=== PATIENT | female | born 1970 | race Caucasian/White ===

== ENCOUNTER 2017-12-28 08:22 | Emergency (ER) | payer MEDICAID ==
[2017-12-28 08:35] VITALS: RESP 20
[2017-12-28 10:28] VITALS: O2SAT 96
--- NOTE | 2017-12-28 11:30 | C.PDOC ---
History Of Present Illness 47 year old female presents to the ED for evaluation of lower back pain which began two weeks ago, and worsened yesterday. Patient states she underwent "spinal surgery" in June 2016. She does not know the type of surgery or the name of her surgeon. Patient typically ambulates with walker. She states her pain has started radiating to her bilateral upper legs. She denies recent falls/injuries, fever, chills, urinary retention, urinary/bowel incontinence, rash or sensory changes. Time Seen by Provider: 12/28/17 09:02 Chief Complaint (Nursing): Back Pain History Per: Patient History/Exam Limitations: no limitations Onset/Duration Of Symptoms: Days (2 weeks ) Current Symptoms Are (Timing): Worse Quality Of Discomfort: "Pain" Previous Symptoms: Back Pain (lower) Associated Symptoms: denies: Incontinence, New Weakness, New Numbness Additional History Per: Patient Past Medical History Reviewed: Historical Data, Nursing Documentation, Vital Signs Vital Signs: Last Vital Signs Temp 97.9 F 12/28/17 10:27 Pulse 91 H 12/28/17 10:27 Resp 20 12/28/17 10:27 BP 98/62 L 12/28/17 10:27 Pulse Ox 96 12/28/17 10:27 - Medical History PMH: Anxiety, Hypothyroidism Surgical History: Cholecystectomy Family History: States: Unknown Family Hx - Social History Hx Tobacco Use: Yes Hx Alcohol Use: No Hx Substance Use: No (former heroin abuser, on methadone daily) - Immunization History Hx Tetanus Toxoid Vaccination: No Hx Influenza Vaccination: No Hx Pneumococcal Vaccination: No Review Of Systems Constitutional: Negative for: Fever, Chills Genitourinary: Negative for: Incontinence Musculoskeletal: Positive for: Back Pain (lower), Leg Pain (bilateral, upper ) Neurological: Negative for: Weakness, Numbness Physical Exam - Physical Exam Appears: Non-toxic, Other (in moderate pain ) Skin: Normal Color, Warm, Dry, No Rash Head: Atraumatic, Normacephalic Eye(s): bilateral: Normal Inspection Oral Mucosa: Moist Neck: Supple Chest: Symmetrical, No Deformity, No Tenderness Cardiovascular: Rhythm Regular, No Murmur Respiratory: Normal Breath Sounds, No Rales, No Rhonchi, No Wheezing Gastrointestinal/Abdominal: Soft, No Tenderness, No Guarding, No Rebound Back: Other (diffuse lumbar tenderness. midline surgical scar noted to L3-L5 area. no erythema, rash or swelling ) Extremity: Normal ROM, No Tenderness, Capillary Refill, No Deformity, No Swelling Neurological/Psych: Oriented x3, Normal Speech, Normal Cognition, Normal Sensation Gait: With Assistance (walker) ED Course And Treatment O2 Sat by Pulse Oximetry: 96 (on RA) Pulse Ox Interpretation: Normal Progress Note: Toradol IM, Valium PO, and Prednisone PO given. On reassessment, patient is resting comfortably, showing no signs of distress and reports an improvement in her symptoms. Patient is ambulatory in the ED with walker and is stable for discharge. Patient will be discharged with Rx for Lidoderm patch and Naproxen for pain and Valium for muscle spasm. Patient is advised to follow up with her PMD within 1-2 days for further evaluation. Disposition Counseled Patient/Family Regarding: Studies Performed, Diagnosis, Need For Followup, Rx Given - Disposition Referrals: Manpreet Medina MD [Medical Doctor] - Disposition: HOME/ ROUTINE Disposition Time: 11:30 Condition: STABLE Additional Instructions: FOLLOW UP WITH YOUR DOCTOR IN 1-2 DAYS USE MEDICATIONS NEEDED RETURN TO ER IF SYMPTOMS WORSEN Prescriptions: Diazepam [Valium] 2 mg PO BID PRN #14 tablet PRN Reason: musle spasm Lidocaine 5% [Lidoderm] 1 patch TOP DAILY PRN #10 patch PRN Reason: pain Naproxen [Naprosyn] 1 tab PO BID PRN #25 tab PRN Reason: Pain Instructions: Low Back Pain (DC) Forms: [facility] (Vietnamese) Print Language: SERBIAN - POA Present On Arrival: None - Clinical Impression Clinical Impression: Low back pain - Scribe Statement The provider has reviewed the documentation as recorded by the Scribe (Khushboo Llamas) Provider Attestation: All medical record entries made by the Scribe were at my direction and personally dictated by me. I have reviewed the chart and agree that the record accurately reflects my personal performance of the history, physical exam, medical decision making, and the department course for this patient. I have also personally directed, reviewed, and agree with the discharge instructions and disposition.
[2017-12-28 11:32] VITALS: BP 132/83; PULSE 71; TEMP 98.1
== END 2017-12-28 16:06 | disposition home or self-care (01) ==
LOC: C.ER 08:22
DX: M54.5 Low back pain (principal)
CPT/HCPCS: 96372; 99284; J1885

== ENCOUNTER 2018-01-17 16:32 | Emergency (ER) | payer MEDICAID ==
[2018-01-17 16:45] VITALS: BMI 24.7
[2018-01-17 16:58] VITALS: RESP 20
[2018-01-17] MEDS ORDERED: DiphenhydrAMINE 50 mg/ml Inj IVP STA (17:13)
[2018-01-17] MEDS ORDERED: Sodium Chloride 0.9% 1,000 ML IV ONE (17:13)
[2018-01-17] MEDS ORDERED: DiphenhydrAMINE 50 mg/ml Inj ONE (17:44)
--- NOTE | 2018-01-17 17:56 | C.PDOC ---
History Of Present Illness 47 year old female with a history of chronic back pain presents to the ED for evaluation of worsening abdominal pain associated with nonbilious/nonbloody vomiting, intermittent fever diarrhea, chills, and exacerbated chronic back pain for 2 days. The [facility] In the ED she requests medications. Denies sick contact, recent travel, and any other associated symptoms. Time Seen by Provider: 01/17/18 16:53 Chief Complaint (Nursing): Abdominal Pain History Per: Patient History/Exam Limitations: no limitations Onset/Duration Of Symptoms: Days Current Symptoms Are (Timing): Still Present Recent travel outside of the [place]: No Past Medical History Reviewed: Historical Data, Nursing Documentation, Vital Signs Vital Signs: Last Vital Signs Temp 99.3 F 01/17/18 16:56 Pulse 84 01/17/18 16:56 Resp 20 01/17/18 16:56 BP 175/110 H 01/17/18 16:56 Pulse Ox 98 01/17/18 16:56 - Medical History PMH: Anxiety, Hypothyroidism Surgical History: Cholecystectomy Family History: States: Unknown Family Hx - Social History Hx Tobacco Use: Yes Hx Alcohol Use: No Hx Substance Use: No (former heroin abuser, on methadone daily) - Immunization History Hx Tetanus Toxoid Vaccination: No Hx Influenza Vaccination: No Hx Pneumococcal Vaccination: No Review Of Systems Except As Marked, All Systems Reviewed And Found Negative. (as per HPI.) Constitutional: Positive for: Fever (subjective. ), Chills. Negative for: Other (sick contact. ) Gastrointestinal: Positive for: Nausea, Vomiting, Diarrhea Physical Exam - Physical Exam Appears: Other (mild distress. lethargic. ) Skin: Warm, Dry Head: Normacephalic, Tenderness Eye(s): bilateral: PERRL, EOMI Oral Mucosa: Other (tacky mucus membranes) Teeth: Other (poor dentition) Neck: Normal ROM, Trachea Midline Cardiovascular: Rhythm Regular, No Murmur Respiratory: Normal Breath Sounds, No Accessory Muscle Use Gastrointestinal/Abdominal: Soft, Tenderness (diffuse, distractible, unlocalizable.), No Mass, No Distention, No Guarding, No Rebound Back: Decreased ROM, Paraspinal Tenderness Extremity: No Deformity Neurological/Psych: Oriented x3, Dysarthria, Other (slurred speech. at times appears to be falling asleep during discussion.) ED Course And Treatment - Laboratory Results Result Diagrams: 01/17/18 18:02 01/17/18 18:02 O2 Sat by Pulse Oximetry: 98 (RA) Pulse Ox Interpretation: Normal - CT Scan/US CT ABD/Pelvis Other Rad Studies (CT/US): Read By Radiologist CT/US Interpretation: FINDINGS: LUNG BASES: The lung bases appear clear. No pleural effusions are seen. LIVER: Unremarkable. GALLBLADDER AND BILE DUCTS: S/p cholecystectomy. Surgical clips are noted in the gallbladder fossa. PANCREAS: Unremarkable. SPLEEN: Unremarkable. ADRENAL GLANDS: Unremarkable. KIDNEYS, URETERS, AND BLADDER: The kidneys appear within normal limits. There is no hydronephrosis or hydroureter. No urinary calculi are seen. STOMACH AND BOWEL: Thick walled fluid filled duodenum and loops of jejunum as well as ileum compatible with enteritis. Thick walled fluid filled colon is noted with involvement of all segments compatible with diffuse pancolitis. Infectious and inflammatory etiologies are considered. APPENDIX: No evidence of acute appendicitis on CT examination. PERITONEUM: No free fluid. No free air. LYMPH NODES: No lymphadenopathy is evident. REPRODUCTIVE: Uterus and ovaries are unremarkable. VASCULATURE: No evidence of abdominal aortic aneurysm. BONES: No aggressive appearing osseous lesion. No acute osseous pathology evident. MISCELLANEOUS: Small fat-containing umbilical hernia is noted. IMPRESSION: Enteritis and pancolitis. Infectious and inflammatory etiologies are considered. Small fat-containing umbilical hernia is noted. Medical Decision Making Medical Decision Making: Impression: abdominal pain Plan: --CT ABD/Pelvic IV contrast only --Blood sent. --Urinalysis --Benadryl --Pepcid --Reglan Differentials included but are not limited to: obstruction, primary substance abuse counselor, colitis, gastritis, pancreatitis, and drug seeking behavior. The patient is concerned about receiving IV narcotic medications for pain. She was advised of the pain policy. At this time will focus on gastro work-up symptom treatment for vomiting and GI distress. Labs uremarkable. CT cw enteritis, grijalva colitis. No leukocytosis or signs/symptoms sepsis. Stable for dc with antibiotics and followup PMD 1-2 days. LOULOU pt findings and plan of care. Upon discussion, pt very eager to leave and hurried discharge. Disposition - Disposition Referrals: Manpreet Paniagua MD [Medical Doctor] - (FOLLOW UP WITH DR PANIAGUA IN 24-48 HOURS) Disposition: HOME/ ROUTINE Disposition Time: 21:00 Condition: IMPROVED Additional Instructions: DRINK PLENTY OF HYDRATING FLUIDS AND REST TAKE MEDICATIONS PRESCRIBED Prescriptions: Ciprofloxacin [Cipro] 1 tab PO BID #20 tab Dicyclomine [Bentyl] 20 mg PO QID PRN #20 tab PRN Reason: abdominal pain metroNIDAZOLE [Flagyl] 500 mg PO TID #30 tab Ondansetron ODT [Zofran ODT] 1 odt PO Q6 PRN #20 odt PRN Reason: Nausea/Vomiting Instructions: Diarrhea and Traveler's Diarrhea, Adult (DC) - Clinical Impression Clinical Impression: Colitis, Enteritis - Scribe Statement The provider has reviewed the documentation as recorded by the Scribe (Noa Willis) Provider Attestation: All medical record entries made by the Scribe were at my direction and personally dictated by me. I have reviewed the chart and agree that the record accurately reflects my personal performance of the history, physical exam, medical decision making, and the department course for this patient. I have also personally directed, reviewed, and agree with the discharge instructions and disposition.
[2018-01-17 18:07] LABS: BASO # 0.1 K/uL (0.0-0.2); BASO % 0.8 % (0.0-2.0); EOS % 0.4 % (0.0-4.0); HEMOGLOBIN 12.2 g/dL (11.0-16.0); LYMPH # 2.5 K/uL (1.0-4.3); LYMPH % 26.1 % (20.0-40.0); MEAN CORPUSCULAR HEMOGLOBIN 30.4 pg (27.0-31.0); MEAN CORPUSCULAR HGB CONC 34.5 g/dL (33.0-37.0); MEAN PLATELET VOLUME 7.7 fL (7.2-11.7); MONO # 0.5 K/uL (0.0-0.8); MONO % 5.4 % (0.0-10.0); NEUT # 6.5 K/uL (1.8-7.0); NEUT % 67.3 % (50.0-75.0); NRBC % 0.1 % (0.0-2.0); RBC 4.02 Mil/uL (3.80-5.20); RED CELL DISTRIBUTION WIDTH 14.9 % (11.5-14.5); WHITE BLOOD COUNT 9.6 K/uL (4.8-10.8)
[2018-01-17 18:20] LABS: ALB/GLOB RATIO 0.9 (1.0-2.1); ALBUMIN 5.3 g/dL (3.5-5.0); BLOOD UREA NITROGEN 14 mg/dL (7-17); CALCIUM 9.7 mg/dl (8.6-10.4); GFR NON-AFRICAN AMERICAN > 60; LIPASE 24 U/L (23-300)
[2018-01-17 18:23] LABS: ALT/SGPT 57 U/L (9-52); AST/SGOT 74 U/L (14-36)
[2018-01-17] MEDS ORDERED: Iohexol 300 100 ML IJ ONE (19:57)
[2018-01-17 20:16] LABS: BENZODIAZEPINES, UR NEGATIVE (NEGATIVE); PHENCYCLIDINE, UR NEGATIVE (NEGATIVE)
[2018-01-17 20:19] LABS: SQUAMOUS EPITHIAL 5 /hpf (0-5); URINE BACTERIA FEW (<OCC); URINE BILIRUBIN NEGATIVE (NEGATIVE); URINE BLOOD NEGATIVE (NEGATIVE); URINE CLARITY Hazy (Clear); URINE COLOR Yellow (YELLOW); URINE GLUCOSE (UA) NORMAL (Normal); URINE LEUKOCYTE ESTERASE 1+ Leu/uL (Negative); URINE PROTEIN 2+ mg/dL (NEGATIVE); URINE UROBILINOGEN NORMAL mg/dL (0.2-1.0)
[2018-01-17 20:20] LABS: BARBITURATES, UR POSITIVE (NEGATIVE); OPIATES, UR POSITIVE (NEGATIVE)
[2018-01-17] MEDS ORDERED: Ciprofloxacin 400mg/200ml D5W 400 MG/200 ML BAG IV STA (21:36)
[2018-01-17] MEDS ORDERED: metroNIDAZOLE IV 500 mg/100 ml 500 MG/100 ML BAG IVPB STA (21:37)
[2018-01-17 22:02] VITALS: BP 118/82; PULSE 92; TEMP 98.1
[2018-01-18 00:21] VITALS: O2SAT 98
--- NOTE | 2018-01-18 11:02 | CT ---
Date of service: 01/17/2018 PROCEDURE: CT Abdomen and Pelvis with contrast HISTORY: abd pain,vomiting COMPARISON: None available. TECHNIQUE: Contrast dose: 100 mL Omnipaque 300 Radiation dose: Total exam DLP = 478.43 mGy-cm. This CT exam was performed using one or more of the following dose reduction techniques: Automated exposure control, adjustment of the mA and/or kV according to patient size, and/or use of iterative reconstruction technique. FINDINGS: LOWER THORAX: Bibasilar atelectasis. No visible pleural effusion or pneumothorax. LIVER: Hypoattenuation of the liver compatible with hepatic steatosis. Punctate hepatic dome calcifications, presumably calcified granulomas. GALLBLADDER AND BILE DUCTS: Cholecystectomy. PANCREAS: Unremarkable. SPLEEN: Unremarkable. ADRENALS: Unremarkable. KIDNEYS AND URETERS: The kidneys enhance symmetrically. No hydronephrosis or obstructing calculus identified. VASCULATURE: No aortic aneurysm. Atherosclerotic calcification and mural plaque present. BOWEL: Stomach is nondistended. Lack of oral contrast limits evaluation for bowel pathology. Bowel loops appear within normal limits of caliber without evidence of obstruction. Understood distended colonic loops appear thickened concerning for colitis. Scattered loops of small bowel wall thickening may reflect enteritis. APPENDIX: The appendix appears within normal limits of caliber. No secondary signs of acute appendicitis. PERITONEUM: No significant free fluid. No definite free air. LYMPH NODES: No bulky adenopathy identified. BLADDER: Unremarkable. REPRODUCTIVE: Uterus is present. BONES: Degenerative changes of the spine. 1.3 cm anterolisthesis of L4 on L5. OTHER FINDINGS: Fat containing ventral hernia. IMPRESSION: Understood distended colonic loops appear thickened concerning for colitis. Scattered loops of small bowel wall thickening may reflect enteritis. Hypoattenuation of the liver compatible with hepatic steatosis. Punctate hepatic dome calcifications, presumably calcified granulomas. Preliminary impression was provided by [facility]
== END 2018-01-17 22:02 | disposition home or self-care (01) ==
LOC: C.ER 16:32
DX: K52.9 Noninfective gastroenteritis and colitis, unspecified (principal); E03.9 Hypothyroidism, unspecified; F41.9 Anxiety disorder, unspecified
CPT/HCPCS: 74177; 80053; 80320; 80324; 80345; 80346; 80349; 80353; 80358; 80361; 81001; 83605; 83690; 83992; 84703; 85025; 96361; 96374; 96375; 99284; J1200; J2765; J7030; Q9967

== ENCOUNTER 2018-03-09 11:04 | Emergency (ER) | payer MEDICAID ==
[2018-03-09 11:12] VITALS: BMI 23.7
[2018-03-09] MEDS ORDERED: Sodium Chloride 0.9% 1,000 ML IV ONE (11:39)
[2018-03-09] MEDS ORDERED: Sodium Chloride 0.9% 1,000 ML ONE (11:48)
--- NOTE | 2018-03-09 11:50 | C.PDOC ---
History Of Present Illness 47 y/o female, with no PMHx and had recent surgery in her back, comes in to ED complaining of abdominal pain with vomiting since 7am this morning. Also complains of chills yesterday and cough but denies any diarrhea, dysuria, hematu nallely, fever, or other symptoms. States her last menstrual period was 1 or 2 years ago. Patient has no other complaints at this time. Time Seen by Provider: 03/09/18 11:20 Chief Complaint (Nursing): Abdominal Pain History Per: Patient History/Exam Limitations: no limitations Onset/Duration Of Symptoms: Hrs Current Symptoms Are (Timing): Still Present Past Medical History Reviewed: Historical Data, Nursing Documentation, Vital Signs Vital Signs: Last Vital Signs Temp 98.3 F 03/09/18 11:15 Pulse 75 03/09/18 11:15 Resp 18 03/09/18 11:15 BP 162/87 H 03/09/18 11:15 Pulse Ox 98 03/09/18 11:15 - Medical History PMH: Anxiety, Hypothyroidism Surgical History: Back Surgery, Cholecystectomy Family History: States: No Known Family Hx - Social History Hx Tobacco Use: Yes Hx Alcohol Use: No Hx Substance Use: No (former heroin abuser, on methadone daily) - Immunization History Hx Tetanus Toxoid Vaccination: No Hx Influenza Vaccination: No Hx Pneumococcal Vaccination: No Review Of Systems Except As Marked, All Systems Reviewed And Found Negative. Constitutional: Positive for: Chills. Negative for: Fever ENT: Negative for: Nose Congestion Cardiovascular: Negative for: Chest Pain Respiratory: Positive for: Cough. Negative for: Shortness of Breath Gastrointestinal: Positive for: Vomiting, Abdominal Pain. Negative for: Diarrhea Genitourinary: Negative for: Dysuria, Hematuria Skin: Negative for: Rash Physical Exam - Physical Exam Appears: Non-toxic, No Acute Distress Skin: Warm, Dry Head: Atraumatic, Normacephalic Eye(s): bilateral: Normal Inspection Oral Mucosa: Moist Neck: Supple Cardiovascular: Rhythm Regular, No Murmur Respiratory: Normal Breath Sounds, No Rales, No Rhonchi, No Wheezing Gastrointestinal/Abdominal: Soft, Tenderness (mild tenderness to palpation), No Guarding, No Rebound Extremity: Bilateral: Atraumatic, Normal Color And Temperature, Normal ROM Neurological/Psych: Oriented x3, Normal Speech ED Course And Treatment - Laboratory Results Result Diagrams: 03/09/18 12:10 03/09/18 12:10 O2 Sat by Pulse Oximetry: 98 (RA) Pulse Ox Interpretation: Normal - Other Rad XR obstructive series X-Ray: Read By Radiologist Interpretation: Accession No. : [id number]. Patient Name / ID : SUKHDEV MURRAY E / [id number]. Exam Date : 03/09/2018 12:31:08 ( Approved ). Study Comment : Sex / Age : F / 47Y. Creator : Linda Tolentino. Dictator : Linda Tolentino. Diet Clerk : Dental Laboratory Manager : Linda Tolentino. Approver2 : Report Date : 03/09/2018 13:44:58. My Comment : . Date of service: 03/09/2018. PROCEDURE: Radiographs of the chest and abdomen (obstructive series). HISTORY: abd pain. COMPARISON: Chest x-ray 02/20/2016. TECHNIQUE: AP radiograph of the chest, with upright and supine radiographs of the abdomen. FINDINGS: CHEST: Lungs: Clear. Cardiovascular: Mild cardiomegaly suggested. No pulmonary vascular congestion. No aortic atherosclerotic calcification present. Pleura: No pleural fluid. No pneumothorax. Other findings: None. ABDOMEN AND PELVIS: Bowel: Moderate stool retention.. No evidence of mechanical obstruction. Free air: None. Bones: Inferior lumbar sclerotic facet hypertrophic arthrosis. Other findings: Right upper quadrant post cholecystectomy clips. Bilateral hemipelvic phleboliths. Mild SI joint sclerotic arthrosis. Bilateral mild hip arthrosis. IMPRESSION: No pulmonary infiltrate. Moderate stool retention especially right colon. No evidence of mechanical bowel obstruction. Status post cholecystectomy. Other findings as above. Medical Decision Making Medical Decision Making: Plan: --Bloodwork --Obstructive Series --Pepcid 20 mg IV --IV fluids 1L --Zofran 4 mg IV --UA Patient is repeatedly asking for Ativan. Labs reviewed. UA shows +leuks and bacteria. X-ray read, shows no obstruction. Patient counseled regarding all results. Administered IV rocephin for UTI. On re-evaluation, patient reports feeling better after meds given. States she wants to go home. Patient remains afebrile, AAOx3, tolerating PO. Will d/c home with rx for Keflex and Naproxen. Disposition Counseled Patient/Family Regarding: Studies Performed, Diagnosis, Need For Followup - Disposition Referrals: [facility] [Outside] [facility] [Outside] Disposition: HOME/ ROUTINE Disposition Time: 14:35 Condition: IMPROVED Additional Instructions: TERRI SANTIZO, thank you for letting us take care of you today. Your provider was Kristine Jean-Baptiste MD and you were treated for ABDOMINAL PAIN AND VOMITING. The emergency medical care you received today was directed at your acute symptoms. If you were prescribed any medication, please fill it and take as directed. It may take several days for your symptoms to resolve. Return to the Emergency Department if your symptoms worsen, do not improve, or if you have any other problems. Please contact your doctor or call one of the physicians/clinics you have been referred to that are listed on the Patient Visit Information form that is included in your discharge packet. Bring any paperwork you were given at discharge with you along with any medications you are taking to your follow up visit. Our treatment cannot replace ongoing medical care by a primary care provider outside of the emergency department. Thank you for allowing the [facility] team to be part of your care today. If you had an X-Ray or CT scan: A Radiologist will review the ED reading if any change in treatment is needed we will contact you. If you had a blood, urine, or wound culture: It will take several days for the results, if any change in treatment is needed we will contact you. If you had an STI test: It will take 48 hours for the results. Please call after 1 week if you have not heard back. Prescriptions: Cephalexin [cephalexin] 250 mg PO QID #28 cap Naproxen [Naprosyn] 500 mg PO BID PRN #30 tablet PRN Reason: Pain, Moderate (4-7) Instructions: Urinary Tract Infection, Adult (DC), Acute Abdomen (Belly Pain), Adult (DC) Forms: [facility] (Georgian), General Discharge Instructions - POA Present On Arrival: None - Clinical Impression Clinical Impression: Abdominal pain, UTI (urinary tract infection), Elevated liver enzymes - Scribe Statement The provider has reviewed the documentation as recorded by the Phi Carrington Provider Attestation: All medical record entries made by the Mikaibguy were at my direction and personally dictated by me. I have reviewed the chart and agree that the record accurately reflects my personal performance of the history, physical exam, medical decision making, and the department course for this patient. I have also personally directed, reviewed, and agree with the discharge instructions and disposition.
[2018-03-09 12:17] LABS: BASO # 0.1 K/uL (0.0-0.2); EOS # 0.2 K/uL (0.0-0.7); LYMPH # 2.2 K/uL (1.0-4.3); RED CELL DISTRIBUTION WIDTH 14.8 % (11.5-14.5)
[2018-03-09 12:25] LABS: EOS % 2.8 % (0.0-4.0); LYMPH % 27.9 % (20.0-40.0); MEAN PLATELET VOLUME 8.4 fL (7.2-11.7); MONO # 0.5 K/uL (0.0-0.8); MONO % 6.1 % (0.0-10.0); NEUT % 62.2 % (50.0-75.0); NRBC % 0.2 % (0.0-2.0)
[2018-03-09 12:26] LABS: MEAN CELL VOLUME 90.8 fL (81.0-99.0)
[2018-03-09 12:33] LABS: ALB/GLOB RATIO 1.1 (1.0-2.1); ALT/SGPT 67 U/L (9-52); AST/SGOT 96 U/L (14-36); BLOOD UREA NITROGEN 20 mg/dL (7-17); CALCIUM 9.1 mg/dl (8.6-10.4); GFR NON-AFRICAN AMERICAN 59; LIPASE 33 U/L (23-300)
[2018-03-09 12:43] LABS: SQUAMOUS EPITHIAL 3 /hpf (0-5); URINE AMORPHOUS SEDIMENT RARE /ul (<OCC); URINE BACTERIA FEW (<OCC); URINE BILIRUBIN NEGATIVE (NEGATIVE); URINE BLOOD NEGATIVE (NEGATIVE); URINE CLARITY Hazy (Clear); URINE COLOR Yellow (YELLOW); URINE GLUCOSE (UA) NORMAL (Normal); URINE LEUKOCYTE ESTERASE 2+ Leu/uL (Negative); URINE PROTEIN 2+ mg/dL (NEGATIVE); URINE UROBILINOGEN NORMAL mg/dL (0.2-1.0)
[2018-03-09 13:08] LABS: BENZODIAZEPINES, UR NEGATIVE (NEGATIVE); PHENCYCLIDINE, UR NEGATIVE (NEGATIVE)
[2018-03-09 13:22] LABS: BARBITURATES, UR POSITIVE (NEGATIVE); OPIATES, UR POSITIVE (NEGATIVE)
[2018-03-09 13:40] VITALS: RESP 20
--- NOTE | 2018-03-09 13:48 | RAD ---
Date of service: 03/09/2018 PROCEDURE: Radiographs of the chest and abdomen (obstructive series) HISTORY: abd pain COMPARISON: Chest x-ray 02/20/2016 TECHNIQUE: AP radiograph of the chest, with upright and supine radiographs of the abdomen. FINDINGS: CHEST: Lungs: Clear. Cardiovascular: Mild cardiomegaly suggested No pulmonary vascular congestion. No aortic atherosclerotic calcification present Pleura: No pleural fluid. No pneumothorax. Other findings: None. ABDOMEN AND PELVIS: Bowel: Moderate stool retention.. No evidence of mechanical obstruction. Free air: None. Bones: Inferior lumbar sclerotic facet hypertrophic arthrosis Other findings: Right upper quadrant post cholecystectomy clips. Bilateral hemipelvic phleboliths. Mild SI joint sclerotic arthrosis. Bilateral mild hip arthrosis IMPRESSION: No pulmonary infiltrate. Moderate stool retention especially right colon. No evidence of mechanical bowel obstruction. Status post cholecystectomy. Other findings as above.
[2018-03-09 14:35] VITALS: BP 170/90; PULSE 79; TEMP 98.8
[2018-03-09 14:38] VITALS: O2SAT 98
== END 2018-03-09 15:29 | disposition home or self-care (01) ==
LOC: C.ER 11:04
DX: N39.0 Urinary tract infection, site not specified (principal); R74.8 Abnormal levels of other serum enzymes; R10.9 Unspecified abdominal pain
CPT/HCPCS: 74022; 80053; 80324; 80345; 80346; 80349; 80353; 80358; 80361; 81001; 81025; 83690; 83992; 85025; 87086; 96361; 96365; 96375; 99285; J0696; J1885; J2405; J7030